=== PATIENT | female | born 1990 | race American Indian/Alaskan Native ===

== ENCOUNTER 2018-03-01 20:14 | Emergency (ER) | payer MEDICAID ==
[2018-03-01] MEDS ORDERED: TYLENOL PO ONE (21:50)
[2018-03-01] MEDS ORDERED: TYLENOL ONE (22:08)
[2018-03-01 22:23] VITALS: BP 118/81
== END 2018-03-02 01:30 | disposition left against medical advice (07) ==
LOC: ED 20:14
DX: R07.0 Pain in throat (principal); Z53.21 Procedure and treatment not carried out due to patient leaving prior to being seen by health care provider
CPT/HCPCS: 87430

== ENCOUNTER 2019-07-24 09:43 | Day surgery (SDC) | payer OTHER ==
[~2019-07-24 09:43] MED LIST: HYDROmorphone 1 MG/1 ML INJ ONE; LIDOCAINE MPF (2%) 20 MG/1 ML VIAL 5 ML ONE; ONDANSETRON 4 MG/2 ML INJ ONE; PROPOFOL 200 MG/20 ML VIAL IV ONE; dexAMETHasone 20 MG/5 ML VIAL ONE
[2019-07-24] MEDS ORDERED: MIDAZOLAM 2 MG/2 ML INJ IV NR (09:59)
[2019-07-24] MEDS ORDERED: LACTATED RINGERS 1,000 ML IV SCH (10:00)
[2019-07-24] MEDS ORDERED: FAMOTIDINE 20 MG/2 ML INJ IV NR (10:00)
--- NOTE | 2019-07-24 10:16 | Anesthesia Consultation ---
Anesthesia Consult and Med Hx Date of service: 07/24/19 - Airway Anesthetic Teeth Evaluation: Good ROM Head & Neck: Adequate Mental/Hyoid Distance: Adequate Mallampati Class: Class I Intubation Access Assessment: Good - Pulmonary Exam CTA: Yes - Cardiac Exam Cardiac Exam: RRR - Pre-Operative Health Status ASA Pre-Surgery Classification: ASA2 Proposed Anesthetic Plan: General - Pulmonary Hx Smoking: Yes (5-6 cigs/day x 12 years) Hx Asthma: No COPD: No Hx Pneumonia: No - Cardiovascular System Hx Hypertension: No - Central Nervous System Hx Seizures: No Hx Psychiatric Problems: No - Endocrine Hx Renal Disease: No Hx End Stage Renal Disease: No Hx Non-Insulin Dependent Diabetes: Yes (gestational diabetes) Hx Hypothyroidism: No Hx Hyperthyroidism: No - Hematic Hx Anemia: No Hx Sickle Cell Disease: No - Other Systems Hx Alcohol Use: No
--- NOTE | 2019-07-24 10:17 | Anesthesia Day of Surgery ---
Anesthesia Day of Surgery - Day of Surgery Patient Examined: Yes Patient H&P Reviewed: Yes Patient is NPO: Yes
[2019-07-24 10:47] LABS: Hemoglobin 12.7 gm/dl (10.1-14.3)
[2019-07-24] MEDS ORDERED: fentaNYL 100 MCG/2 ML INJ IV PRN (11:20)
[2019-07-24] MEDS ORDERED: fentaNYL 100 MCG/2 ML INJ IV ONE (11:52)
--- NOTE | 2019-07-24 12:37 | Short Stay Summary ---
Short Stay Documentation Date of service: 07/24/19 Narrative H&P: 28y/o with abnormal uterine bleeding status post an elective termination of . Pelvic ultrasound demonstrated a thickened endometrium consistent with retained products of conception. - History Principal diagnosis: Retained products of conception Past Medical History: No medical history Past Surgical History: Social history: single - Allergies and Medications Current Medications: Allergies No Known Allergies Allergy (Verified 01/22/14 10:42) Home Medications Medication Instructions Recorded Confirmed Last Taken Type Pnv with Ca,No.72/Iron/FA 1 tab PO DAILY 10/24/13 07/24/19 07/23/19 History [ Plus Tablet] traMADol 50 mg PO PRN PRN 07/24/19 07/24/19 07/23/19 History Active Medications Famotidine (Pepcid) 20 mg IV PREOP NR Stop: 07/24/19 23:59 Last Admin: 07/24/19 10:44 Dose: 20 mg Documented by: Fentanyl (Sublimaze) 50 mcg IV Q5MIN PRN PRN Reason: Pain , Severe (7-10) Stop: 07/24/19 18:00 Lactated Ringer's (Lactated Ringers) 1,000 mls @ 100 mls/hr IV DIRECT HAYDEE Last Admin: 07/24/19 10:30 Dose: 100 mls/hr Documented by: Midazolam HCl (Versed) 2 mg IV ONCE NR Stop: 07/24/19 23:59 Last Admin: 07/24/19 10:35 Dose: 2 mg Documented by: - Physical exam General appearance: no acute distress Integumentary: no rash HEENT: Atraumatic Lungs: Clear to auscultation Breasts: deferred Heart: Regular rate Gastrointestinal: normal Female Genitourinary: deferred Rectal Exam: deferred - Brief post op/procedure progress note Date of procedure: 07/24/19 Pre-op diagnosis: retained products of conception Post-op diagnosis: same Procedure: Suction dilatation and curettage Anesthesia: RAUL Surgeon: JASIEL CHAPMAN Estimated blood loss: 50-100ml Pathology: list (products of conception) Specimen disposition: to lab Condition: stable - Hospital course Hospital course: The patient was admitted the day of surgery and underwent a suction dilatation and curettage. Please see operative note for details of surgery. Her postoperative course was uneventful. - Disposition Condition at discharge: Good Disposition: DC-01 TO HOME OR SELFCARE Short Stay Discharge Plan Activity: other (pelvic rest for 1 week) Diet: regular Additional Instructions: Schedule follow-up with Dr. Chapman in 2 weeks Prescriptions: Ibuprofen [Motrin] 800 mg PO Q8HR PRN #60 tablet PRN Reason: Pain, Mild (1-3) HYDROcodone/APAP 5-325 [[place] 5/325] 1 each PO Q6HR PRN #20 tablet PRN Reason: Pain
[2019-07-24] MEDS ORDERED: KETOROLAC 30 MG/1 ML INJ ONE (13:06)
[2019-07-24] MEDS ORDERED: PROPOFOL 200 MG/20 ML VIAL IV ONE (13:10)
--- NOTE | 2019-07-24 13:21 | Operative Report ---
Operative Report Operative Report: Date of surgery: 07/24/2019 Preoperative diagnosis: Retained products of conception Postoperative diagnosis: Same as above Procedure: Suction dilatation and curettage Surgeon: Sweta Wilkerson M.D. Anesthesia: Gen. endotracheal anesthesia Estimated blood loss: 50 mL Findings: Products of conception Indication: 28-year-old who is status post an elective termination with findings of retained products of conception. Procedure: The patient was taken to the operating room and given general e ndotracheal anesthesia without complication. The patient is prepped and draped in a normal sterile fashion. A bivalve speculum was placed in the patient's vagina and a single-tooth tenaculums placed on the anterior lip of the cervix. The uterine cavity was then sounded. The cervical os was then dilated with graduated dilators. A number [place] curved cannula was placed to suction and found to be adequate. The cannula was then gently inserted into the dilated cervical os. Evacuation of the uterine contents were performed. Sharp curettage and endometrial surface was performed until cry was achieved. The cannula was then gently reinserted into the uterine cavity to evacuate any additional contents. After removal of the cannula there was no evidence of any active bleeding. The vaginal instruments were then removed atraumatically. The patient was then successfully extubated and taken to the recovery room in stable condition. All sponge laps and needle counts were correct x2. Pathology consisted of products of conception.
[2019-07-24 14:18] VITALS: BP 110/76
--- NOTE | 2019-07-24 15:29 | Post Anesthesia Evaluation ---
- Post Anesthesia Evaluation Patient Participated: Yes Airway Patent: Yes Stable Respiratory Function: Yes Nausea/Vomiting: No Temp > 96.8F: Yes Pain Manageable: Yes Adequeate Hydration: Yes Anesthesia Complications: No
== END 2019-07-24 15:05 | disposition home or self-care (01) ==
LOC: OR 09:43
PROVIDERS: ATTEND Obstetrics & Gynecology
DX: O02.89 Other abnormal products of conception (principal); E11.9 Type 2 diabetes mellitus without complications; F17.210 Nicotine dependence, cigarettes, uncomplicated; Z79.899 Other long term (current) drug therapy; Z82.49 Family history of ischemic heart disease and other diseases of the circulatory system
CPT/HCPCS: 36415; 59812; 85014; 85018; 85461; 86850; 86870; 86900; 86901; 88305; J1100; J1170; J1885; J2250; J2405; J2704; J3010; J7120